=== PATIENT | male | born 1995 | race African-American/Black ===

== ENCOUNTER 2019-12-13 13:40 | Emergency (ER) | payer SELFPAY ==
[~2019-12-13] VITALS: Ht 190.5 cm; Wt 136.4 kg
[2019-12-13 16:25] VITALS: BP 124/66; PULSE 64; TEMP 97.2
== END 2019-12-13 16:26 | disposition home or self-care (01) ==
LOC: COL.ER 13:40
DX: R45.851 Suicidal ideations (principal); F17.210 Nicotine dependence, cigarettes, uncomplicated